=== PATIENT | female | born 1980 | race Asian ===

== ENCOUNTER → 2021-01-24 | Outpatient (CLI) | payer BC ==
--- NOTE | 2021-01-24 11:49 | RAD ---
EXAM: Chest, 2 views. HISTORY: Cough. COMPARISON: None. FINDINGS: 2 views of the chest are obtained. There is no infiltrate, pleural effusion or pneumothorax . The heart is normal in size. There is a faint nodular opacity overlying the left costophrenic angle which is likely artifactual. IMPRESSION: No acute pulmonary finding. Electronically signed by: Faustina Stone MD (01/24/2021 11:47 AM) [id number]
== END ==
LOC: RAD 11:12
PROVIDERS: ATTEND Internal Medicine
DX: R05 Cough (principal)
CPT/HCPCS: 71046